=== PATIENT | female | born 1960 | race Caucasian/White ===

== ENCOUNTER → 2020-03-30 13:58 | Outpatient (BNVA) | payer BC, SELFPAY | PROVIDERS: PCP Internal Medicine; Referring Provider Internal Medicine; Visit Provider Hospitalist | DX: Z76.89 Persons encountering health services in other specified circumstances (principal) ==

== ENCOUNTER 2021-02-02 13:47 | Outpatient (REF) | payer BC, SELFPAY ==
--- NOTE | 2021-02-02 15:23 | PFT_ITS ---
INDICATION: Asthma. SPIROMETRY: The FEV1 to FVC of 77% with an FEV1 of 1.62 L, which is 69% predicted, and an FVC of 2.12 L, which is 69% predicted. Post bronchodilator shows significant improvement of the FVC by 26% and of the FEV1 by 27%. The maximum voluntary ventilation 79% predicted. The most significant finding was that the WTS69-99 was only 44% predicted, and improved by 169% to 118% consistent with her asthma and this is in the moderate to severe severity. Maximum voluntary ventilation 79% predicted. LUNG VOLUMES: Total lung capacity 79% predicted with an expiratory reserve volume of 18% predicted secondary to an elevated BMI. DIFFUSION CAPACITY: DLCO 79% predicted. INTERPRETATION: No obstructive ventilatory defects. There was a significant response to bronchodilators noted and a significant degree of small airways disease that reversed after bronchodilation. This is consistent with her history of hyperreactive airways and the diagnosis of asthma. There is also mild decrease in maximum voluntary ventilation secondary to deconditioning. Lung volumes appear to show a mild restrictive ventilatory defect likely secondary to an elevated BMI with the expiratory reserve volume at 18% predicted. In addition to that, there is a mild diffusion impairment that does correct to normal when correcting for the alveolar volume. Clinical correlation warranted. Carlos Nowak MD MR/MODL / [id number]
== END 2021-02-02 13:48 | disposition home or self-care (01) ==
LOC: HO.RESP 13:47
PROVIDERS: PCP Internal Medicine; Visit Provider Hospitalist
DX: J45.909 Unspecified asthma, uncomplicated (principal)
CPT/HCPCS: 94060; 94727; 94729

== ENCOUNTER 2022-04-26 15:00 | Outpatient (REF) | payer BC, SELFPAY ==
[2022-04-26 15:16] LABS: MANUAL DIFF FLAG NO
[2022-04-26 16:04] LABS: Basophils Absolute Auto 0.1 X10*3/uL (0.0-0.2); Basophils Percent Auto 0.9 % (0-2); Eosinophils Absolute Auto 0.3 X10*3/uL (0.0-0.4); Eosinophils Percent Auto 3.4 % (0-4); Hematocrit 48.6 % (37.0-47.0); Hemoglobin 16.3 g/dl (12.0-16.0); Imm Gran Abs Auto 0.04 X10*3/uL (0.00-0.03); Imm Gran Pct Auto 0.4 % (0.0-0.4); Lymphocytes Absolute Auto 2.8 X10*3/uL (1.2-4.9); Lymphocytes Percent Auto 29.1 % (20-40); Mean Corpuscular HGB Conc 33.5 g/dl (31.0-35.0); Mean Corpuscular Hemoglobin 29.4 pg (27.0-33.0); Mean Corpuscular Volume 87.7 fL (80.0-98.0); Mean Platelet Volume 10.5 fL (9.4-12.3); Monocytes Percent Auto 9.8 % (2-11); Neutrophils Absolute Auto 5.5 x10*3/uL (2.0-8.3); Neutrophils Percent Auto 56.4 % (45-73); Platelet Count 262 X10*3/uL (160-400); Red Blood Count 5.54 X10*6/uL (4.20-5.50); White Blood Count 9.7 X10*3/uL (4.8-10.8)
[2022-04-26 16:48] LABS: Erythrocyte Sedimentation Rate 16 MM/HR (0-20)
[2022-04-28 12:03] LABS: IgA 350 mg/dL (70-320); IgG 1070 mg/dL (600-1540); IgM 116 mg/dL (50-300)
== END 2022-04-26 15:01 | disposition home or self-care (01) ==
LOC: HO.LAB 15:00
PROVIDERS: PCP Internal Medicine; Visit Provider Hospitalist
DX: J45.40 Moderate persistent asthma, uncomplicated (principal); J30.9 Allergic rhinitis, unspecified
CPT/HCPCS: 36415; 82784; 82785; 85025; 85652; 86003

== ENCOUNTER → 2022-07-26 14:14 | Outpatient (BNVA) | payer BC, SELFPAY | PROVIDERS: PCP Internal Medicine; Visit Provider Hospitalist | DX: J45.40 Moderate persistent asthma, uncomplicated (principal); J30.9 Allergic rhinitis, unspecified ==

== ENCOUNTER 2023-10-17 14:05 | Outpatient (AMB) | payer BC, SELFPAY ==
[2023-10-17 14:10] VITALS: PULSE 50; O2SAT 96
--- NOTE | 2023-10-17 14:10 | A.OFFVIS_ITS ---
Vital Signs 10/17/23 14:10 Height 5 ft 2 in BMI Reason not done Patient refused/unable Pulse 50 Pulse Source Pulse Oximeter Pulse Oximetry (%) 96 Oxygen Delivery Method Room Air Intake Visit Reasons: asthma Publishing Manager Required: No Allergies levofloxacin [From LEVAQUIN] Allergy (Severe, Verified 10/17/23 14:12) ANAPHYLAXIS HPI Comments Details: The patient is a 63-year-old woman with a known history of obstructive sleep apnea and also asthma. She has been more symptomatic lately with increasing shortness of breath. She has been using her Advair once a day. She does have a spacer. She also has a nebulizer that she has use some only usually once or twice a month. This is only if her breathing gets much worse. She has not required any prednisone. We did review her pulmonary function studies that she just had today demonstrating significant small airways disease suggesting that she does have significant asthma. She had a significant improvement of the small airways disease when she use the bronchodilators which is very reassuring. No evidence of any fixed obstruction to suggest COPD although she does have significant asthma based on the studies. The patient has not had any recent all ergy testing or blood work to assess her phenotype in some time. Therefore will request blood work she can to when she is able. The patient has been using her CPAP. The CPAP therapy continues to be affecting beneficial. She does use for more than 4 hours a night. Unfortunately she has been coughing more specially when she puts the mask on. Most likely she does have a postnasal drip that is w orsened by her positive pressure therapy. I will prescribe her additional medications. She did try Claritin without any significant improvement. We considered Astelin. At this point will try Atrovent nasal spray to see if he can try up the secretions before she puts her CPAP on in addition to trying some singular at nighttime for asthma. This may also help her nasal congestion if the patient continues to be symptomatic even on optimized therapy then will consider biologic therapy at that point. 04/26/2022 the patient is here for pulmonary follow-up visit. the patient had been in her usual state health until this fall when she started developing worsening shortness of breath and chest tightness. She had called the office but we had no availability. Therefore she is on her primary care doctor. She was prescribed prednisone which was partially helpful. Although she still having significant coughing and shortness of breath. She has been using her respiratory therapy and nebulized therapy a daily basis with only partial resolution of her symptoms. She has had a hard time sleeping because of the coughing. The patient had been seen by Allergy in the past and she was getting allergy shots at some point. she denies any sick contacts. Denies any fevers or chills or sore throat. She has tested multiple times for COVID-19. On examination she does have some wheezing. The patient will need further optimization of the respiratory therapy. The patient if no better may need to go back on prednisone. In meantime will perform some allergy testing to see if the patient benefits from any biologic therapies. In the meantime she continues use her CPAP. The CPAP therapy continues to be affecting beneficial. She does use it for more than 4 hours a night. 07/26/2022 the patient has a telehealth visit today. Overall the patient is doing well. She did complete the prednisone during the last visit back in March. She has not required any more prednisone. We did try the Trelegy however to see if that will provide her with optimize respiratory coverage. However, she did not do well with it and she stopped it and went back to the Advair HFA. Currently she does state the Advair HFA 230/21 which is the highest dose. She does continue to use her CPAP. The CPAP therapy continues to be affecting beneficial and she does use it for more than 4 hours a night. Will see how she does during the springtime. She does have significant asthma with significant allergy symptoms then she will be a good candidate for biologics with Xolair. 10/17/2023 the patient is here for a pulmonary follow-up visit. The patient overall has been doing fairly well until back in July 2023 when she was exposed to a sick contact. She developed influenza B. She was fairly sick with cough chest tightness wheezing. She is starting to feel little better although she still not her baseline. She needs to continue with her inhaler. The Advair HFA works will very well for her. I will make sure to send to the pharmacy. In addition to that she does have some chest tightness and wheezing on examination and adding an anticholinergic may be helpful. The patient had been on Trelegy before explained to her that if she does use the Advair and Spiriva she will have maximum respiratory therapy specially while she is recovering from the worsening reactive airways due to the influenza. She does continue to use CPAP. She is using nasal pillows. She is buying supplies. CPAP therapy continues to be affecting beneficial. I did explain to her if she is having some difficult ies with the pressure she can always bring it in and we can download the machine adjusted. And also to note the patient did have a chest x-ray. I do not have the reading but she was told that it was okay per report. [facility] Medical History (Updated 02/02/21 @ 21:15 by Carlos Nowak MD) Chronic allergic rhinitis MIC on CPAP Asthma Social History (Updated 02/02/21 @ 15:37 by LORRAINE Lara) Patient Tobacco Use Status: Current someday Tobacco user Tobacco use type: Cigarette Cigarette Packs Per Day: 1 Cigarettes Per Day: 3 Years Smoked: 35 years Review of Systems Const Denies night sweats ENT Denies change in voice, Denies lip swelling, Denies mouth pain, Reports nasal congestion, Reports nasal discharge, Reports post nasal drip and Denies tongue swelling Card Denies chest pain and Reports dyspnea on exertion Resp Reports cough, Reports dyspnea on exertion and Reports wheezing GI Denies abdominal pain Musc Denies no additional complaints Neuro Denies Neuro-related abnormal movements Psych Denies no additional complaints Quinton/Lymph Denies easy bleeding and Denies lymphadenopathy Aller/Immun Denies lip swelling, Denies tongue swelling and Reports wheezing Physical Exam Vital Signs: Last Vital Signs Pulse 50 10/17/23 14:10 Pulse Ox 96 10/17/23 14:10 Oxygen Delivery Method Room Air 10/17/23 14:10 Const General: alert HEENT General nose exam: Abnormal external nose present and Nasal discharge present Eyes Pupils: Equal, round and reactive pupils present Neck Neck: Yes normal visual inspection, Yes full ROM and Yes no lymphadenopathy Chest Chest palpation & inspection: normal inspection of the chest Resp Auscultation: wheezes and diminished lung sounds Cardio Rate: regular rate Rhythm: regular rhythm Heart sounds: S1 normal heart sound present and S2 normal heart sound present GI Palpation (GI): Soft to palpation and nontender Auscultation: normal bowel sounds General: Yes no CVA tenderness Back/Spine/Pelvis Back: no CVA tenderness Skin General skin exam: rashes and/or lesions noted Neuro Cranial nerves: Yes Equal, round and reactive pupils present Assessment & Plan Assessment & Plan (1) Asthma: Code(s): J45.909 - Unspecified asthma, uncomplicated Category: Medical Qualifiers: Asthma complication type: uncomplicated Asthma persistence: persistent Asthma severity: moderate Qualified Code(s): J45.40 - Moderate persistent asthma, uncomplicated (2) MIC on CPAP: Code(s): G47.33 - Obstructive sleep apnea (adult) (pediatric); Z99.89 - Dependence on other enabling machines and devices Category: Medical (3) Chronic allergic rhinitis: Code(s): J30.9 - Allergic rhinitis, unspecified Category: Medical Plan Singular, consider seasonally continue Advair HFA 230/21 Trial Spiriva respimet consider Xolair if no better short-acting beta agonist as needed nasal spray continue PAP therapy with her nasal pillows follow-up in 12 months Medications: New albuterol sulfate 2.5 mg (3 mL) inhalation Q6H PRN 90 mL 11RF shortness of breath or wheezing 30 days Refilled fluticasone propion-salmeterol 230-21 mcg/actuation (Advair HFA) 2 puffs inhalation Q12H 12 grams 11RF 30 days albuterol sulfate 90 mcg/actuation 2 puffs PO Q6H PRN 8.5 grams 11RF for wheez ing Coding Level of Care Code Est Pt Level 4 (40943) Diagnoses Moderate persistent asthma without complication J45.40 Asthma complication type: uncomplicated Asthma persistence: persistent Asthma severity: moderate MIC on CPAP G47.33; Z99.89 Chronic allergic rhinitis J30.9 Time Spent (min) 16
== END 2023-10-17 14:38 | disposition home or self-care (01) ==
PROVIDERS: PCP Internal Medicine; Referring Provider Internal Medicine; Visit Provider Hospitalist
DX: J45.40 Moderate persistent asthma, uncomplicated (principal); G47.33 Obstructive sleep apnea (adult) (pediatric); Z99.89 Dependence on other enabling machines and devices; J30.9 Allergic rhinitis, unspecified
CPT/HCPCS: 99214

== ENCOUNTER → 2023-10-17 14:05 | Outpatient (BNVA) | payer BC, SELFPAY | PROVIDERS: PCP Internal Medicine; Visit Provider Hospitalist ==